=== PATIENT | female | born 1965 ===

== ENCOUNTER 2020-01-23 19:47 | Inpatient (IN) | payer MEDICAID, OTHER ==
[~2020-01-23] VITALS: Ht 167.6 cm; Wt 83.8 kg
--- NOTE | 2020-01-23 20:04 | NUR ---
THIS IS A 54Y F BIB EMS FROM [place], PT WAS SEEN THERE FOR ALOC,PT WAS FOUND BY FAMILY THIS AM NOT RESPONDING NORMALLY, VSS, MAINTIAINING AIRWAY, NEURO INTACT UPON ARRIVAL HERE AND RESPONSIVE TO STAFF APPROPRIATELY. PT REPORTS FREQUENT METH AND SMOKING "WEED" PER PT THIS IS NOT NEW AND HER LAST USE WAS YESTERDAY. PT ARRIVED WITH BALDERAS IN PLACE WELL BILAT PIV.
[2020-01-23] MEDS ORDERED: GABAPENTIN PO (20:08)
[2020-01-23] MEDS ORDERED: MELOXICAM PO (20:08)
[2020-01-23] MEDS ORDERED: LEVOTHYROXINE (20:08)
[2020-01-23] MEDS ORDERED: METFORMIN (20:08)
[2020-01-23] MEDS ORDERED: PANTOPRAZOLE (20:08)
[2020-01-23] MEDS ORDERED: SODIUM CHLORIDE 0.9% 1,000 ML IV ONE (20:30)
--- NOTE | 2020-01-23 20:54 | NUR ---
PER SISTER THIS HAS BEEN AN ONGOING PROBLEM WITH PT CHANGE IN LEVEL OF CONSCIOUSNESS AND HAS BEEN HAVING FREQUENT UTI'S. WILL CALL BACK AGAIN AFTER WE HAVE MORE INFORMATION.
--- NOTE | 2020-01-23 20:59 | NUR ---
URINE SENT TO LAB
[2020-01-23 21:24] LABS: AMPHETAMINE SCREEN, URINE Positive (Negative); BARBITURATE SCREEN, URINE Negative (Negative); BENZODIAZEPINE SCREEN, URINE Negative (Negative); CANNABINOID SCREEN, URINE Positive (Negative); COCAINE SCREEN, URINE Negative (Negative); METHADONE SCREEN, URINE Negative (Negative); OPIATE SCREEN, URINE Negative (Negative)
[2020-01-23 21:25] LABS: TROPONIN I < 0.015 ng/mL (0.000-0.045)
[2020-01-23] MEDS ORDERED: LACTULOSE 20 GM/30 ML UDC PO SCH (21:30)
[2020-01-23 21:33] LABS: SALICYLATE LEVEL < 1.7 mg/dL (2.8-20.0)
[2020-01-23 21:49] LABS: MICROSCOPIC AUTO
--- NOTE | 2020-01-23 21:51 | NUR ---
REQUEST FOR MEDICATION SENT TO PHARMACY
[2020-01-23] MEDS ORDERED: POLYETHYLENE GLYCOL 17 GM PACKET PO PRN (22:00)
[2020-01-23] MEDS ORDERED: ONDANSETRON ODT 4 MG PO PRN (22:00)
[2020-01-23] MEDS ORDERED: BISACODYL 10 MG SUPP PR PRN (22:00)
--- NOTE | 2020-01-23 22:22 | NUR ---
REPORT TO MAXIMO COLE
[2020-01-23] MEDS: INSULIN LISPRO 100 UNITS/ML, PEN SQ-INSULIN SCH (22:30)
[2020-01-23 22:51] VITALS: BP 111/73
[2020-01-23] MEDS: NS + 20MEQ KCL 1,000 ML IV SCH (23:06)
[2020-01-23] MEDS: LACTULOSE 20 GM/30 ML UDC PO SCH (23:06)
[2020-01-24] MEDS: CEFTRIAXONE PMX 1GM/50ML 50 ML IV SCH ×2 (00:02→22:39)
[2020-01-24 00:56] VITALS: BP 128/65
[2020-01-24 05:33] LABS: BASOPHILS % (AUTO) 1 % (0-1); EOSINOPHILS % (AUTO) 3 % (1-7); LYMPHOCYTES % (AUTO) 25 % (22-44); MEAN CORPUSCULAR HGB CONC 34.6 g/dL (32.4-35.8); MEAN PLATELET VOLUME 8.4 fL (7.4-10.4); MONOCYTES % (AUTO) 7 % (2-9); NEUTROPHILS % (AUTO) 64 % (42-75); PLATELET COUNT 117 x10^3/uL (130-400); RED BLOOD COUNT 3.61 x10^6/uL (3.82-5.3)
[2020-01-24 05:47] LABS: MD NO
[2020-01-24 05:51] LABS: ALBUMIN 2.4 g/dL (3.4-5.0); ANION GAP 7 mmol/L (5-15); CALCIUM 8.4 mg/dL (8.5-10.1); CHLORIDE 107 mmol/L (98-107)
[2020-01-24 05:56] LABS: ALANINE AMINOTRANSFERASE 29 U/L (12-78); ALKALINE PHOSPHATASE 146 U/L (45-117); BILIRUBIN,TOTAL 1.8 mg/dL (0.2-1.0); CREATININE 0.71 mg/dL (0.55-1.02); TOTAL PROTEIN 7.5 g/dL (6.4-8.2)
[2020-01-24] MEDS: INSULIN LISPRO 100 UNITS/ML, PEN SQ-INSULIN SCH ×4 (07:00→20:36)
[2020-01-24 09:10] VITALS: BP 118/74
[2020-01-24] MEDS: LACTULOSE 20 GM/30 ML UDC PO SCH ×3 (09:24→20:33)
[2020-01-24] MEDS: SENNA/DOCUSATE TABLET PO SCH (09:24)
[2020-01-24] MEDS: NS + 20MEQ KCL 1,000 ML IV SCH ×2 (10:39→20:33)
[2020-01-24] MEDS ORDERED: POTASSIUM CHLORIDE 20 MEQ TAB.ER.PRT PO ONE (12:30)
[2020-01-24] MEDS: LEVOTHYROXINE 125 MCG TABLET PO SCH (13:13)
[2020-01-24] MEDS: ENOXAPARIN 40 MG/0.4 ML SQ SCH (13:13)
[2020-01-24 15:05] VITALS: BP 113/74
[2020-01-24 20:49] VITALS: BP 122/73
[2020-01-25 02:19] VITALS: BP 117/72
[2020-01-25] MEDS: LEVOTHYROXINE 125 MCG TABLET PO SCH (05:45)
[2020-01-25] MEDS: NS + 20MEQ KCL 1,000 ML IV SCH (06:02)
[2020-01-25 06:20] LABS: BASOPHILS % (AUTO) 1 % (0-1); EOSINOPHILS % (AUTO) 3 % (1-7); LYMPHOCYTES % (AUTO) 28 % (22-44); MEAN CORPUSCULAR HEMOGLOBIN 33.4 pg (27.0-34.8); MEAN CORPUSCULAR HGB CONC 35.1 g/dL (32.4-35.8); MEAN PLATELET VOLUME 8.2 fL (7.4-10.4); MONOCYTES % (AUTO) 8 % (2-9); NEUTROPHILS % (AUTO) 61 % (42-75); PLATELET COUNT 122 x10^3/uL (130-400); RED BLOOD COUNT 3.44 x10^6/uL (3.82-5.3); RED CELL DISTRIBUTION WIDTH 14.3 % (9.6-15.2)
[2020-01-25 06:26] LABS: ALANINE AMINOTRANSFERASE 32 U/L (12-78); ALBUMIN 2.2 g/dL (3.4-5.0); ANION GAP 5 mmol/L (5-15); CALCIUM 7.7 mg/dL (8.5-10.1); CHLORIDE 115 mmol/L (98-107); CREATININE 0.75 mg/dL (0.55-1.02)
[2020-01-25 06:28] LABS: ALKALINE PHOSPHATASE 126 U/L (45-117); BILIRUBIN,TOTAL 1.8 mg/dL (0.2-1.0); TOTAL PROTEIN 6.8 g/dL (6.4-8.2)
[2020-01-25 06:33] LABS: MD NO
[2020-01-25] MEDS: INSULIN LISPRO 100 UNITS/ML, PEN SQ-INSULIN SCH ×4 (07:00→21:00)
[2020-01-25] MEDS ORDERED: MAGNESIUM SULFATE 3 GM in SODIUM CHLORIDE 0.9% 100 ML IV ONE (08:00)
[2020-01-25 08:58] VITALS: BP 110/69
[2020-01-25] MEDS: LACTULOSE 20 GM/30 ML UDC PO SCH ×3 (09:44→22:13)
[2020-01-25] MEDS: SENNA/DOCUSATE TABLET PO SCH (09:45)
[2020-01-25] MEDS ORDERED: CEFD300C37 PO (11:45)
[2020-01-25] MEDS ORDERED: LEVO125T5 PO (11:45)
[2020-01-25] MEDS ORDERED: LACT20SO13 PO (11:45)
[2020-01-25 15:03] VITALS: BP 113/72
[2020-01-25] MEDS: ENOXAPARIN 40 MG/0.4 ML SQ SCH (16:55)
[2020-01-25 22:09] VITALS: BP 103/68
[2020-01-25] MEDS: CEFTRIAXONE PMX 1GM/50ML 50 ML IV SCH (23:16)
[2020-01-26 02:33] VITALS: BP 102/59
[2020-01-26] MEDS: LEVOTHYROXINE 125 MCG TABLET PO SCH (05:53)
[2020-01-26] MEDS: INSULIN LISPRO 100 UNITS/ML, PEN SQ-INSULIN SCH ×2 (07:00→11:00)
[2020-01-26] MEDS: LACTULOSE 20 GM/30 ML UDC PO SCH (08:46)
[2020-01-26] MEDS: SENNA/DOCUSATE TABLET PO SCH (08:48)
[2020-01-26 09:47] VITALS: BP 106/71
[2020-01-26 14:05] VITALS: BP 110/71
== END 2020-01-26 15:03 | disposition home or self-care (01) | DRG 280 ==
LOC: ED 21:24 → EDIP 22:06 → 3N 22:39 → 5SO 01-25 18:34
PROVIDERS: ADMIT Family Medicine; ATTEND Family Medicine
DX: K70.41 Alcoholic hepatic failure with coma (principal); B96.20 Unspecified Escherichia coli [E. coli] as the cause of diseases classified elsewhere; D64.9 Anemia, unspecified; D69.6 Thrombocytopenia, unspecified; E11.9 Type 2 diabetes mellitus without complications; E87.6 Hypokalemia; E89.0 Postprocedural hypothyroidism; G40.909 Epilepsy, unspecified, not intractable, without status epilepticus; F19.10 Other psychoactive substance abuse, uncomplicated; G92 Toxic encephalopathy; K74.60 Unspecified cirrhosis of liver; N39.0 Urinary tract infection, site not specified; Z79.890 Hormone replacement therapy; Z80.9 Family history of malignant neoplasm, unspecified
CPT/HCPCS: 36415; 76705; 80053; 80074; 80307; 81001; 82140; 82962; 83036; 83735; 84100; 84443; 84484; 85025; 87077; 87086; 87186; 93005; G0378; J0696; J1650; J3475; J3480; J1815